=== PATIENT | male | born 1980 | race Caucasian/White ===

== ENCOUNTER → 2020-12-05 15:41 | Outpatient (BNVA) | payer BC, SELFPAY | PROVIDERS: Family Provider Family Medicine; PCP Nurse Practitioner Family; Visit Provider Urology | DX: N41.1 Chronic prostatitis (principal) | CPT/HCPCS: 81003 ==

== ENCOUNTER 2022-02-07 15:23 | Emergency (ER) | payer BC, SELFPAY ==
[2022-02-07 15:34] VITALS: BP 178/96; PULSE 62; RESP 16; TEMP 36.6; O2SAT 99; BMI 26.6
--- NOTE | 2022-02-07 15:45 | PC.NURSE ---
DR. VO REVIEWED EKG THAT WAS TAKEN IN TRIAGE AT 1540.
--- NOTE | 2022-02-07 16:17 | ECG_ITS ---
[facility] Test Date: 2022-02-07 Pat Name: Luis Baez Department: Room: Gender: Male [employer] Principal: : 1980 Requested By: Mak Day Order Number: [id number] Reading MD: Violet Goff M.D. Measurements Intervals [place] Rate: 64 P: 73 NE: 158 QRS: 74 QRSD: 92 T: 56 QT: 391 QTc: 406 Interpretive Statements SINUS RHYTHM WITH SINUS ARRHYTHMIA No previous ECG available for comparison Electronically Signed On 02-07-2022 23:28:05 CDT by Violet Goff M.D. [id number]
--- NOTE | 2022-02-07 16:17 | XRR_ITS ---
PROCEDURE INFORMATION: Exam: XR Chest Exam date and time: 02/07/2022 4:34 PM Age: 41 years old Clinical indication: Pain; Angina pectoris; Additional info: Chest pain TECHNIQUE: Imaging protocol: XR of the chest. Views: 1 view. COMPARISON: CR XR KUB [id number] 05/08/2017 10:07 PM FINDINGS: Lungs: Unremarkable. No consolidation. Pleural spaces: Unremarkable. No pleural effusion. No pneumothorax. Heart/Mediastinum: Unremarkable. No cardiomegaly. Bones/joints: Unremarkable. XR/XR chest 1V portable [id number] IMPRESSION: No acute findings.
--- NOTE | 2022-02-07 17:08 | W.ED.DIZZY ---
HPI - Dizziness General: Chief Complaint: Dizziness Stated Complaint: abnormal heart Time Seen by Provider: 02/07/22 16:56 PFSH ED PFSH: Medical History (Updated 12/05/20 @ 09:07 by Alexandro Dan MD) Chronic prostatitis Proctitis Surgical History (Updated 12/05/20 @ 09:07 by Alexandro Dan MD) H/O knee surgery H/O shoulder surgery ROTATOR CUFF AND LABRUM Hx of foot surgery POPE'S NEUROMA S/P appendectomy Family History Mother , AT AGE 56 Cancer LUNG Social History Smoking and tobacco status: never smoked Alcohol intake: never Marital status: Current occupational status: employed Course Vital Signs: Vital signs: Vital Signs Temperature 97.9 F 02/07/22 15:34 Pulse Rate 62 02/07/22 15:34 Respiratory Rate 16 02/07/22 15:34 Blood Pressure 178/96 02/07/22 15:34 Pulse Oximetry 99 02/07/22 15:34 MDM - Dizziness Lab Data Radiology Impressions Chest X-Ray 02/07/22 16:17 IMPRESSION: No acute findings. Discharge Plan Discharge Condition: Stable Prescriptions: No Action sulfamethoxazole-trimethoprim 800-160 mg tablet 1 tab PO BID Qty: 60 4RF Referrals: Rafia Jang FNP [Primary Care Provider] - Coding Level of Care Code ED Therapist'S Assistant for [facility]
--- NOTE | 2022-02-07 17:08 | W.ED.GENADLT ---
HPI - General Adult General: Chief complaint: Dizziness Stated complaint: abnormal heart Time Seen by Provider: 02/07/22 16:56 History of Present Illness: Patient is a 41-year-old male with a history of alpha gal who presents the emergency room for evaluation of right thigh pain, lightheadedness, chest pain and shortness of breath. 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 Patient felt lightheaded and a school nurse told him to come to the emergency room for evaluation. Patient said that the episode lasted briefly for few seconds and then disappeared. Shortly while patient was getting transferred to the hospital, he had another episode. Patient reports for the last 3 days, he has complained of right leg sharp pain. Patient says that he been driving to [place] to his son's graduation. She denies any pleuritic chest pain, tearing chest pain rating to his back, pressure-like chest pain. Patient has 5 first-degree family member who from heart attack in his 50s. Patient denies any smoking, drug use, alcohol use. Patient denies any pressure-like chest pain. Prior history of syncope. Patient ports that sharp leg pain has been going on for the last 3 days. Onset: earlier today Duration:multiple episodes Location:home Severity:moderate Associated symptoms: Reports chest pain, dyspnea and palpitations; Deny nausea, rash or vomiting Review of Systems Const: Reports: other (+generalized weakness); Denies: fever(s) or chills Eyes: Denies: change in vision ENMT: Denies: mouth pain Card: Reports: chest pain and palpitations Resp: Reports: dyspnea; Denies: non-productive cough GI: Denies: abdominal pain, nausea, vomiting or diarrhea : Denies: dysuria Musc: Reports: extremity pain (+R thigh pain) Skin/Breast: Denies: rash or new lesions Neuro: Denies: weakness in extremities Psych: Reports: other (Normal mood) Joce/Lymph: Denies: easy bruising PFSH ED PFSH: Medical History Chronic prostatitis Proctitis Surgical History H/O knee surgery H/O shoulder surgery ROTATOR CUFF AND LABRUM Hx of foot surgery POPE'S NEUROMA S/P appendectomy Family History Mother , AT AGE 56 Cancer LUNG Social History Smoking and tobacco status: never smoked Alcohol intake: never Marital status: Current occupational status: employed Physical Exam Const: COMMON NORMALS: alert HENMT: COMMON NORMALS: atraumatic HEAD & SCALP: atraumatic MOUTH: moist mucous membranes not abnormal Eye: COMMON NORMALS: EOMs intact bilaterally and conjunctivae normal CONJUNCTIVA: Yes conjunctivae normal Neck/C-Spine: COMMON NORMALS: full ROM and supple Resp: COMMON NORMALS: normal respiratory effort and clear to auscultation bilaterally AUSCULTATION: clear to auscultation bilaterally Cardio: COMMON NORMALS: regular rate RATE: regular rate OTHER: 2+ radial pulses b/l GI: COMMON NORMALS: Soft to palpation and non-tender PALPATION: Yes Soft to palpation Extremity: COMMON NORMALS: full ROM NARRATIVE EXTREMITY EXAM: no arnav sign Neuro: SENSORIUM/ORIENTATION: Yes alert MOTOR EXAM: No Abnormal motor strength present and Other motor observations present (no focal motor deficits) Psych: COMMON NORMALS: speech normal SPEECH: Yes normal speech MOOD & AFFECT: Yes euthymic mood Course Vital Signs: Vital signs: Vital Signs Temperature 97.9 F 02/07/22 15:34 Pulse Rate 59 L 02/07/22 17:16 Respiratory Rate 16 02/07/22 17:16 Blood Pressure 137/79 02/07/22 17:16 Pulse Oximetry 100 02/07/22 17:16 MDM - General Adult Medical Decision Making 41-year-old male with a history of gout presenting to the emergency room for evaluation of lightheadedness, palpitation, chest pain shortness of breath which occur around 2 PM today. Patient had similar episodes and less intense throughout the day. On exam, patient is hemodynamically stable, 2+ radial pulses bilaterally, no other focal findings. Given presentation, will evaluate for ACS PE and other cardiopulmonary pathologies. Will evaluate RLQ pain with US to for DVT. Troponin x 2 with Delta <5. KG is nonischemic without any acute findings. X-ray chest is clear. D-dimer within normal limit. At the present time, do not suspect lower extremity DVT as patient is completely rule out with D-dimer and ultrasound. Doubt ACS/PE or other emergent causes of chest pain. No suspicion for aortic dissection given no widened mediastinum, 2+ upper extremity pulses, or tearing pain. No suspicion for PE given no pleuritic chest pain, recent immobilization or surgery hemoptysis, or other VTE risk factors. EKG is non-ischemic. XR normal. However, given patient's family history of cardiac disease, I have offered patient close outpatient cardiac evaluation and exercise stress test. Patient agrees with both. I have given patient follow up with our case folder to be seen by our outpatient Cardiology for reevaluation and exercise stress test. Patient aware of a call from our case folder to schedule for appointment(s) and verbalizes understanding of the importance of following up. Disposition: Discharge. Patient counseled regarding diagnostic impression, treatment plan. Patient given ED strict return precautions to return for continuation, worsening, or development of new symptoms. Instructed to f/u w/ PCP and Cardiology regarding symptoms today. Patient verbalized understanding. Lab Data : 02/07/22 17:15 02/07/22 18:11 Radiology Impressions Chest X-Ray 02/07/22 16:17 IMPRESSION: No acute findings. Venous Duplex 02/07/22 17:08 IMPRESSION: No evidence of deep vein thrombosis. Laboratory Results WBC 6.5 10^3/uL (4.0-10.0) 02/07/22 17:15 RBC 4.90 10^6/uL (4.1-5.3) 02/07/22 17:15 Hgb 14.8 g/dL (11.7-16.6) 02/07/22 17:15 Hct 43.1 % (42.0-52.0) 02/07/22 17:15 MCV 88.0 fl (80-94) 02/07/22 17:15 MCH 30.2 pg (28.0-34.0) 02/07/22 17:15 MCHC 34.3 g/dL (30.0-36.0) 02/07/22 17:15 RDW 11.8 % (12.1-15.1) L 02/07/22 17:15 Plt Count 193 10^3/cmm (130-400) 02/07/22 17:15 MPV 10.8 fL (7.4-10.4) H 02/07/22 17:15 Neut % (Auto) 42.3 % 02/07/22 17:15 Lymph % (Auto) 43.7 % 02/07/22 17:15 [place] % (Auto) 12.2 % 02/07/22 17:15 Eos % (Auto) 1.2 % 02/07/22 17:15 Baso % (Auto) 0.3 % 02/07/22 17:15 Neut # (Auto) 2.74 10^3/uL (1.8-7.7) 02/07/22 17:15 Lymph # (Auto) 2.8 10^3/uL (0.8-4.8) 02/07/22 17:15 [place] # (Auto) 0.8 10^3/uL (0.2-0.9) 02/07/22 17:15 Eos # (Auto) 0.1 10^3/uL (0.0-0.8) 02/07/22 17:15 Baso # (Auto) 0.0 10^3/uL (0.0-0.1) 02/07/22 17:15 Nucleated RBC % (auto) 0 % 02/07/22 17:15 Nucleated RBCs # 0.0 /100WBC 02/07/22 17:15 D-Dimer 0.36 ug/mIFEU (0-0.59) 02/07/22 17:24 Sodium 140 mmol/L (136-145) 02/07/22 18:11 Potassium 4.2 mmol/L (3.5-5.1) 02/07/22 18:11 Chloride 103 mmol/L (98-107) 02/07/22 18:11 Carbon Dioxide 27 mmol/L (22-29) 02/07/22 18:11 Anion Gap 14.2 (5-19) 02/07/22 18:11 BUN 13 mg/dL (6-20) 02/07/22 18:11 Creatinine 1.0 mg/dL (0.7-1.2) 02/07/22 18:11 GFR Calculation 82.3 mL/min (90-130) L 02/07/22 18:11 Glucose 95 mg/dL (65-115) 02/07/22 18:11 Calculated Osmolality 290 mOsm/kg (285-295) 02/07/22 18:11 Calcium 9.0 mg/dL (8.5-10.5) 02/07/22 18:11 Troponin T Baseline 9 ng/L (0-15) 02/07/22 18:11 Troponin T 120 Minute 8.86 ng/L (0-15) 02/07/22 19:10 Delta Troponin T -0.14 ABS# (0-10) L 02/07/22 19:10 Imaging Data Other Imaging: Radiologist's impression: [employer] [address] [place] [address]. [place] [address] Ultrasound Report Signed Patient: Luis Baez Unit #: [id number] : 1980 Age/Sex: 41 / M ADM Date: 02/07/22 Loc: ER Room/Bed: Attending Dr: Ordering Provider/Ordering MD: Mak Day MD Date of Service: 02/07/22 Procedure(s): [place] [id number] Accession Number(s): [id number] Report Number: [id number] PROCEDURE INFORMATION: Exam: US Duplex Right Lower Extremity Veins, Limited Exam date and time: 02/07/2022 5:21 PM Age: 41 years old Clinical indication: Other: Numbness right thigh x 3 days; Patient HX: No HX dvt; Additional info: Eval for dvt TECHNIQUE: Imaging protocol: Real-time Duplex ultrasound of the Right Lower Extremity with 2-D sher scale, color Doppler flow and spectral waveform analysis with image documentation. Limited exam was focused on the right lower extremity veins. COMPARISON: No relevant prior studies available. FINDINGS: Right deep veins: Unremarkable. The common femoral, femoral, proximal profunda femoral and popliteal veins are patent without thrombus. Normal Doppler waveforms. Normal compressibility and/or augmentation response.? Right superficial veins: Unremarkable. Saphenofemoral junction is patent without thrombus. Soft tissues: Unremarkable. US/[place] [id number] IMPRESSION: No evidence of deep vein thrombosis. ? Dictated By: Nino Chavis DO Signed By: Nino Chavis DO Signed Date/Time: 02/07/22 1802 DD/ [address] [address] XRay Report Signed Patient: Luis Baez Unit #: [id number] : 1980 Age/Sex: 41 / M ADM Date: 02/07/22 Loc: ER Room/Bed: Attending Dr: Ordering Provider/Ordering MD: Mak Day MD Date of Service: 02/07/22 Procedure(s): XR chest 1V portable [id number] Accession Number(s): [id number] Report Number: [id number] PROCEDURE INFORMATION: Exam: XR Chest Exam date and time: 02/07/2022 4:34 PM Age: 41 years old Clinical indication: Pain; Angina pectoris; Additional info: Chest pain TECHNIQUE: Imaging protocol: XR of the chest. Views: 1 view. COMPARISON: CR XR KUB [id number] 05/08/2017 10:07 PM FINDINGS: Lungs: Unremarkable. No consolidation. Pleural spaces: Unremarkable. No pleural effusion. No pneumothorax. Heart/Mediastinum: Unremarkable. No cardiomegaly. Bones/joints: Unremarkable. XR/XR chest 1V portable [id number] IMPRESSION: No acute findings. ? Dictated By: Nino Chavis DO Signed By: Nino Chavis DO Signed Date/Time: 02/07/22 1700 DD/ 1634 Discharge Plan Discharge Patient Disposition: Home Clinical Impression: Light headedness, Chest tightness Condition: Stable Prescriptions: No Action ibuprofen 200 mg Tablet 400 mg PO Q4H PRN (Reason: Pain) 0RF Discharge Orders: Discharge ED (Routine); Ordered 02/07/22 Ordered By: Mak Day Referrals: Rafia Jang FNP [Primary Care Provider] - Discharge Diet: Advance as tolerated Discharge Activity: Increase activity as tolerated Patient Instructions: Near Syncope (ED) Activity Restrictions/Additional Instructions: Our case folder will have you follow-up with Cardiology in the next few days. You would be expected to have a phone call with our case folder who will put you on the schedule. You can expect a call from us in the next 2-3 days. If you don't hear from us, call us back in the emergency room at [phone]. Please come back to the emergency room for any more breakthrough episodes of light-headedness or passing out. Come back if any weakness in her arms, drooling, difficulty speaking, any neurological symptoms, chest pain/shortness of breath/palpitation or any new or concerning issues. Stand Alone Forms: Work/School Release Coding Level of Care Code ED Shank Faker for [facility] Exam Comprehensive
[2022-02-07 17:16] VITALS: BP 137/79; PULSE 59; RESP 16; O2SAT 100
[2022-02-07 17:29] LABS: Basophils % 0.3 %; Eosinophils # 0.1 10^3/uL (0.0-0.8); Eosinophils % 1.2 %; Hematocrit 43.1 % (42.0-52.0); Hemoglobin 14.8 g/dL (11.7-16.6); Lymphocytes # 2.8 10^3/uL (0.8-4.8); Lymphocytes % 43.7 %; Mean Corpuscular HGB Conc 34.3 g/dL (30.0-36.0); Mean Corpuscular Hemoglobin 30.2 pg (28.0-34.0); Mean Platelet Volume 10.8 fL (7.4-10.4); Monocytes # 0.8 10^3/uL (0.2-0.9); Monocytes % 12.2 %; Neutrophils # 2.74 10^3/uL (1.8-7.7); Neutrophils % 42.3 %; Nucleated Red Blood Cells % 0 %; Platelet Count 193 10^3/cmm (130-400); Red Cell Distribution Width 11.8 % (12.1-15.1); White Blood Count 6.5 10^3/uL (4.0-10.0)
[2022-02-07 17:52] LABS: D Dimer 0.36 ug/mIFEU (0-0.59)
[2022-02-07 18:40] LABS: Troponin(5th) Baseline 9 ng/L (0-15)
[2022-02-07] MEDS: sodium chloride 0.9% 1,000 ML 999 ML IV (18:42)
[2022-02-07 18:44] LABS: Anion Gap 14.2 (5-19); Blood Urea Nitrogen 13 mg/dL (6-20); Carbon Dioxide 27 mmol/L (22-29); Chloride 103 mmol/L (98-107); Glomerular Filtration Rate 82.3 mL/min (90-130); Glucose 95 mg/dL (65-115); Osmolality Calculated 290 mOsm/kg (285-295); Potassium 4.2 mmol/L (3.5-5.1); Sodium 140 mmol/L (136-145)
[2022-02-07 19:57] LABS: Troponin 5 2HR 8.86 ng/L (0-15)
[2022-02-07 20:01] LABS: Troponin 5 2HR Delta -0.14 ABS# (0-10)
[2022-02-07 20:34] VITALS: BP 122/69; PULSE 68; RESP 16; O2SAT 100
--- NOTE | 2022-02-09 12:47 | DCPLANNER ---
Addendum entered by Sammi Menendez 07/13/22 09:24: Patient had a stress test scheduled - patient did attend stress test. Addendum entered by Sammi Menendez 02/28/22 20:20: Patient had a follow up appointment scheduled with [facility] - patient did attend appointment. Addendum entered by Sammi Menendez 02/16/22 08:29: Patient has a follow up appointment scheduled for Monday, February 21, 2022 at 2:[address] Goff at [facility]. customer pricing manager called patient and gave him the appointment information. Addendum entered by Sammi Menendez 02/14/22 13:53: customer pricing manager had message to schedule an outpatient stress test for patient. customer pricing manager called patient to confirm that patient wants the stress test ordered and he stated that he did. Patient also stated that he sees Rafia Jang at [facility] for his primary care physician. customer pricing manager faxed signed order to centralized scheduling, who will call patient with appointment information. Original Note: customer pricing manager had message to schedule a follow up appointment for patient with [facility]. customer pricing manager sent patients information to the front staff at [facility] for review. Patients information will be printed and reviewed. Clinic will notify patient case coordinator with appointment information. customer pricing manager will call patient with appointment information.
== END 2022-02-07 20:37 | disposition home or self-care (01) ==
PROVIDERS: Emergency Provider Emergency Medicine; PCP Nurse Practitioner Family
DX: R42 Dizziness and giddiness (principal); R07.89 Other chest pain; Z82.49 Family history of ischemic heart disease and other diseases of the circulatory system
CPT/HCPCS: 71045; 80048; 84484; 85025; 85378; 93005; 93971; 96360; 99284; J7030

== ENCOUNTER 2022-03-05 07:25 | Outpatient (CLI) | payer BC, SELFPAY ==
[2022-03-05 08:07] LABS: Chol HDL Ratio 7.85 mg/dL (1.0-5.00); Cholesterol 259 mg/dL (0-200); HDL Cholesterol 33 mg/dL (60-100); LDL Cholesterol Calculated 169 mg/dL (50-129); LDL HDL Ratio 5.12 RATIO (0.00-3.22); Triglycerides 286 mg/dL (0-150)
== END 2022-03-05 07:26 | disposition home or self-care (01) ==
PROVIDERS: PCP Nurse Practitioner Family; Visit Provider Internal Medicine Cardiovascular Disease
DX: Z13.220 Encounter for screening for lipoid disorders (principal); Z83.438 Family history of other disorder of lipoprotein metabolism and other lipidemia
CPT/HCPCS: 80061

== ENCOUNTER 2022-05-21 10:50 | Outpatient (CLI) | payer BC, SELFPAY ==
[2022-05-21 11:23] VITALS: BMI 26.6
--- NOTE | 2022-05-21 11:23 | ECG_ITS ---
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 Interpretive Statements NAME OF STUDY: TREADMILL STRESS ECHOCARDIOGRAM INDICATION: Chest Pain, PROCEDURE: The baseline electrocardiogram showed normal sinus rhythm with normal ST-Ts. At the baseline, the patient's blood pressure was 117/79 mm Hg with a heart rate of 83. The patient exercised for 10 minutes and 59 seconds on a 1 7 on a standard Manuel protocol. Patient attained a maximum heart rate of 172 beats per minute(96% of the maximum predicted heart rate) with a blood pressure at the peak exercise of 142/59 mm Hg. The EKG at the peak exercise revealed no significant changes. Patient did not have any chest pain or any significant arrhythmis with the exercise The echocardiographic pictures were taken at the baseline, immediate post exercise and during the recovery phase, at the standard views. During the recovery phase, there were no new changes. Blood pressure at the end of the recovery phase was 128/68 mm Hg with a heart rate of 97 per minute. CONCLUSION: 1. No significant EKG changes with the [treadmill exercise 2. No exercise-induced chest pain or cardiac arrhythmia 3. Good exercise tolerance, attained a maximum of 13.5 METs 4. Echocardiographic pictures were taken at the standard views; see separate report. Electronically Signed On 05-25-2022 17:31:48 CDT by Violet Goff M.D. [email or web address]
[2022-05-21 12:08] VITALS: BP 127/68; PULSE 95
--- NOTE | 2022-05-21 12:15 | USCV_ITS ---
Stress Echo Luis Baez Age: 42 Gender: M : 1980 Exam Date: 05/21/2022 11:42 Ordering Phys: Violet Goff MD ([email or web address]) Technologist: Emeka Orellana [place]am [place] [facility] [place] Indication: cp Rhythm: Sinus Patient History: cp Cardiac Medications: Statin Medications in past 24 hours: NONE Contrast: Stress Results Protocol: Manuel Total dose(mL): Exercise Duration (min:sec): 10:59 METS: 13.5 Resting HR: 83 Resting BP: 117 / 79 Peak HR: 172 Peak BP: 197 / 68 Max Predicted HR: 178 97 % Max Predicted HR Target HR: 151 Double Product: 53943 Stress Summary: The patient's target heart rate was achieved BP Response: Normal Reason for Termination: Reached target heart rate or work-load Cardiac Symptoms: None ECG Analysis Resting ECG: Please see separate report Stress ECG: Please see separate report Arrhythmia: Please see separate report MEASUREMENTS (Male/Female) Normal Values FINDINGS The baseline echocardiogram revealed normal LV size with an ejection fraction of 50 to 55%. The basal septum was found to be hypokinetic. With the peak exercise, there was good augmentation of all the segments with no exercise-induced wall motion abnormalities. During the recovery phase, the segmental wall motion returned to the baseline. CONCLUSIONS Normal echocardiographic response to treadmill exercise No significant coronary ischemia, based on the above findings. For the EKG response to exercise, please refer to separate report Dr Violet Goff MD FAC (Electronically Signed) Final Date: 22 May 2022 08:59 S
== END 2022-05-21 10:51 | disposition home or self-care (01) ==
PROVIDERS: PCP Nurse Practitioner Family; Visit Provider Internal Medicine Cardiovascular Disease
DX: R07.9 Chest pain, unspecified (principal); R06.02 Shortness of breath
CPT/HCPCS: 93017; 93350

== ENCOUNTER 2022-08-19 13:32 | Emergency (ER) | payer BC, SELFPAY ==
[2022-08-19 14:25] VITALS: BMI 26.6
[2022-08-19 14:28] VITALS: BP 136/78; PULSE 70; RESP 18; TEMP 36.7; O2SAT 100
--- NOTE | 2022-08-19 14:39 | CTR_ITS ---
PROCEDURE INFORMATION: Exam: CT Abdomen And Pelvis With Contrast Exam date and time: 08/19/2022 3:04 PM Age: 42 years old Clinical indication: Abdominal pain; Generalized; Prior surgery; Surgery type: Appy; Additional info: Generalized severe abdominal pain TECHNIQUE: Imaging protocol: Computed tomography of the abdomen and pelvis with contrast. Radiation optimization: All CT scans at this facility use at least one of these dose optimization techniques: automated exposure control; mA and/or kV adjustment per patient size (includes targeted exams where dose is matched to clinical indication); or iterative reconstruction. Contrast material: OMNI 350; Contrast volume: 100 ml; Contrast route: INTRAVENOUS (IV); COMPARISON: CR XR abdomen min 2V [id number] 07/17/2022 3:08 PM RADIATION DOSE METRICS: Total DLP (mGy-cm): 517.53 FINDINGS: Lungs: No acute findings within the included lung bases. Liver: Normal. No mass. Gallbladder and bile ducts: Normal. No calcified stones. No ductal dilation. Pancreas: Normal. No ductal dilation. Spleen: Normal. No splenomegaly. Adrenal glands: Normal. No mass. Kidneys and ureters: No hydronephrosis. No mass. Stomach and bowel: Evaluation of the GI tract somewhat limited without the administration of enteric contrast. No obstruction. No focal inflammatory changes are appreciated. Appendix: Appendectomy per history. Intraperitoneal space: No free air. No significant fluid collection. Vasculature: Unremarkable. No abdominal aortic aneurysm. Lymph nodes: Unremarkable. No enlarged lymph nodes. Urinary bladder: Unremarkable as visualized. Reproductive: Unremarkable as visualized. Bones/joints: No acute or aggressive osseous lesion. Soft tissues: Unremarkable. CT/CT abdomen pelvis w con* [id number] IMPRESSION: No acute findings.
--- NOTE | 2022-08-19 14:50 | ED_ITS ---
HPI - General Adult General: Chief complaint: Abdominal Pain Stated complaint: Abd pains Time Seen by Provider: 08/19/22 14:39 History of Present Illness: 42-year-old male presenting today with abdominal pain. Patient notes suprapubic and right quadrant abdominal pain. Pain has been present for several weeks. Has not been improving. KUB was without any significant abnormality. Was sent to the ED by primary care to obtain a CT abdomen pelvis. He denies nausea or vomiting. He denies diarrhea. Tried laxatives without improvement of his symptoms. He denies testicle pain. Does have a history of alpha gal. But is cut out all meat from his diet. He denies fevers or chills Review of Systems General: Reports: 10 or more systems reviewed and unremarkable except in HPI and below PFSH ED PFSH: Medical History Chronic prostatitis Proctitis Surgical History H/O knee surgery H/O shoulder surgery ROTATOR CUFF AND LABRUM Hx of foot surgery POPE'S NEUROMA S/P appendectomy Family History Mother , AT AGE 56 Cancer LUNG Brother CAD (coronary artery disease), Onset Age: 50 Brother CAD (coronary artery disease) pacemaker Denies family history of Diabetes Clotting disorder Dementia Chronic kidney disease (CKD) Suicide Anesthesia complication Bleeding disorder Lung disease Stroke Social History Smoking and tobacco status: never smoked Alcohol intake: current Alcohol intake frequency: holidays/special occasions only Marital status: Current occupational status: employed Physical Exam Const: COMMON NORMALS: no acute distress, patient oriented x3 and alert GENERAL APPEARANCE: cooperative ORIENTATION/CONSCIOUSNESS: Yes awake, Yes oriented to person, Yes oriented to place and Yes oriented to time HENMT: COMMON NORMALS: normocephalic, atraumatic, external ears normal, Normal external nose present and moist oral mucous membranes HEAD & SCALP: normal to inspection, normocephalic and atraumatic NOSE: Normal external nose present GENERAL EAR: hearing grossly impaired EXTERNAL EAR: Yes external ears normal Eye: COMMON NORMALS: Equal, round and reactive pupils present, EOMs intact bilaterally, conjunctivae normal and no scleral icterus GENERAL EYE: appearance normal, both eyes and all related structures EYELID: eyelids normal CONJUNCTIVA: Yes conjunctivae normal SCLERA: sclerae normal PUPIL: Yes Equal, round and reactive pupils present Neck/C-Spine: COMMON NORMALS: full ROM, supple and no JVD GENERAL: Yes normal visual inspection Lymph: LYMPHATIC: no lymphadenopathy noted and no lymphedema noted Chest: COMMONS NORMALS: normal inspection of the chest Resp: COMMON NORMALS: normal respiratory effort, No retractions and No use of accessory muscles Cardio: COMMON NORMALS: no JVD, regular rate and regular rhythm RATE: regular rate RHYTHM: regular rhythm GI: COMMON NORMALS: Normal to inspection, nondistended, normoactive bowel sounds present : COMMON NORMALS: Yes no CVA tenderness BLADDER/KIDNEY EXAM: Yes no CVA tenderness Back/Pelvis: COMMON NORMALS: no CVA tenderness and thoracic and lumbar spine normal to inspection Extremity: COMMON NORMALS: normal to inspection, full ROM and capillary refill normal GENERAL: Yes normal exam except as noted Neuro: COMMON NORMALS: patient oriented x3, CN's II-XII intact bilaterally, moves all extremities, no focal motor deficits, no sensory deficits noted and gait normal SENSORIUM/ORIENTATION: Yes alert, Yes oriented to person, Yes oriented to place and Yes oriented to time Psych: COMMON NORMALS: mental status grossly normal, Normal thought process present, cooperative and normal affect THOUGHT PROCESS: Normal thought process present Skin: COMMON NORMALS: no rashes or lesions noted and no wounds GENERAL SKIN EXAM: no rashes or lesions noted Course Vital Signs: Vital signs: Vital Signs Temperature 98.0 F 08/19/22 14:28 Pulse Rate 70 08/19/22 14:28 Respiratory Rate 18 08/19/22 14:28 Blood Pressure 136/78 08/19/22 14:28 Pulse Oximetry 100 08/19/22 14:28 Oxygen Delivery Me thod 08/19/22 14:28 [facility] - General Adult Medical Decision Making 42-year-old male presenting today with longstanding abdominal pain. CBC is unremarkable. CMP is unremarkable. Urinalysis is unremarkable. CT abdomen pelvis is unremarkable. Patient referred back to his primary care doctor for further evaluation. Patient was given strict return precautions and recommended routine outpatient follow-up. Lab Data : 08/19/22 15:00 08/19/22 15:00 Radiology Impressions Abdomen/Pelvis CT 08/19/22 14:39 IMPRESSION: No acute findings. Laboratory Results WBC 5.1 10^3/uL (4.0-10.0) 08/19/22 15:00 RBC 4.80 10^6/uL (4.1-5.3) 08/19/22 15:00 Hgb 14.8 g/dL (11.7-16.6) 08/19/22 15:00 Hct 42.7 % (42.0-52.0) 08/19/22 15:00 MCV 89.0 fl (80-94) 08/19/22 15:00 MCH 30.8 pg (28.0-34.0) 08/19/22 15:00 MCHC 34.7 g/dL (30.0-36.0) 08/19/22 15:00 RDW 11.3 % (12.1-15.1) L 08/19/22 15:00 Plt Count 197 10^3/cmm (130-400) 08/19/22 15:00 MPV 10.7 fL (7.4-10.4) H 08/19/22 15:00 Neut % (Auto) 44.4 % 08/19/22 15:00 Lymph % (Auto) 41.0 % 08/19/22 15:00 Blair % (Auto) 12.0 % 08/19/22 15:00 Eos % (Auto) 2.0 % 08/19/22 15:00 Baso % (Auto) 0.4 % 08/19/22 15:00 Neut # (Auto) 2.25 10^3/uL (1.8-7.7) 08/19/22 15:00 Lymph # (Auto) 2.1 10^3/uL (0.8-4.8) 08/19/22 15:00 Blair # (Auto) 0.6 10^3/uL (0.2-0.9) 08/19/22 15:00 Eos # (Auto) 0.1 10^3/uL (0.0-0.8) 08/19/22 15:00 Baso # (Auto) 0.0 10^3/uL (0.0-0.1) 08/19/22 15:00 Nucleated RBC % (auto) 0 % 08/19/22 15:00 Nucleated RBCs # 0.0 /100WBC 08/19/22 15:00 Sodium 139 mmol/L (136-145) 08/19/22 15:00 Potassium 4.0 mmol/L (3.5-5.1) 08/19/22 15:00 Chloride 102 mmol/L (98-107) 08/19/22 15:00 Carbon Dioxide 28 mmol/L (22-29) 08/19/22 15:00 Anion Gap 13.0 (5-19) 08/19/22 15:00 BUN 14 mg/dL (6-20) 08/19/22 15:00 Creatinine 1.0 mg/dL (0.7-1.2) 08/19/22 15:00 GFR Calculation 81.9 mL/min (90-130) L 08/19/22 15:00 Glucose 88 mg/dL (65-115) 08/19/22 15:00 Calculated Osmolality 288 mOsm/kg (285-295) 08/19/22 15:00 Calcium 9.5 mg/dL (8.5-10.5) 08/19/22 15:00 Total Bilirubin 1.1 mg/dL (0.15-1.2) 08/19/22 15:00 AST 15 U/L (0-40) 08/19/22 15:00 ALT 14 U/L (0-41) 08/19/22 15:00 Alkaline Phosphatase 102 U/L (40-130) 08/19/22 15:00 Total Protein 7.5 g/dL (6.6-8.7) 08/19/22 15:00 Albumin 4.6 g/dL (3.5-5.2) 08/19/22 15:00 Globulin 2.9 g/dL (1.3-4.6) 08/19/22 15:00 Lipase 73 U/L (13-60) H 08/19/22 15:00 Urine Color Colorless (Yellow) 08/19/22 14:55 Urine Appearance Clear (CLEAR) 08/19/22 14:55 Urine pH 6.5 (5-7) 08/19/22 14:55 Ur Specific [place] 1.000 (1.005-1.030) L 08/19/22 14:55 Urine Protein Neg (Negative) 08/19/22 14:55 Urine Glucose (UA) Norm (Normal) 08/19/22 14:55 Urine Ketones Negative (Negative) 08/19/22 14:55 Urine Blood Neg (Negative) 08/19/22 14:55 Urine Nitrate Negative (Negative) 08/19/22 14:55 Urine Bilirubin Neg (Negative) 08/19/22 14:55 Urine Urobilinogen Norm mg/dL (Negative) 08/19/22 14:55 Ur Leukocyte Esterase Negative (Negative) 08/19/22 14:55 Discharge Plan Discharge Patient Disposition: Home Clinical Impression: Abdominal pain Condition: Stable Prescriptions: No Action rosuvastatin [Crestor] 10 mg tablet 10 mg PO DAILY Qty: 90 3RF ibuprofen 200 mg Tablet 400 mg PO Q4H PRN (Reason: Pain) Discharge Orders: Discharge ED (Routine); Ordered 08/19/22 Ordered By: Gumaro Garber Referrals: Rafia Jang FNP [Primary Care Provider] - Patient Instructions: Abdominal Pain (ED) Coding Level of Care Code ED Collections Professional for Chg Fwd Exam Comprehensive
[2022-08-19] MEDS: iohexol 350 mg/mL 100 mL Btl IV (15:09)
[2022-08-19 15:11] LABS: Add Urine Microscopic? NO; Charge for UA Resulting for Rev
[2022-08-19 15:24] LABS: Basophils % 0.4 %; Eosinophils # 0.1 10^3/uL (0.0-0.8); Hematocrit 42.7 % (42.0-52.0); Hemoglobin 14.8 g/dL (11.7-16.6); Lymphocytes # 2.1 10^3/uL (0.8-4.8); Mean Corpuscular HGB Conc 34.7 g/dL (30.0-36.0); Mean Corpuscular Hemoglobin 30.8 pg (28.0-34.0); Mean Platelet Volume 10.7 fL (7.4-10.4); Monocytes # 0.6 10^3/uL (0.2-0.9); Neutrophils # 2.25 10^3/uL (1.8-7.7); Neutrophils % 44.4 %; Nucleated Red Blood Cells % 0 %; Platelet Count 197 10^3/cmm (130-400); Red Cell Distribution Width 11.3 % (12.1-15.1); White Blood Count 5.1 10^3/uL (4.0-10.0)
[2022-08-19 15:24] LABS: Bilirubin Urine Neg (Negative); Blood Urine Neg (Negative); Glucose Urine UA Norm (Normal); Ketones Urine Negative (Negative); Leukocyte Esterase Urine Negative (Negative); Nitrate Urine Negative (Negative); Protein Urine Neg (Negative); Urine Appearance Clear (CLEAR); Urine Color Colorless (Yellow); Urobilinogen Urine Norm (Negative); pH Urine 6.5 (5-7)
[2022-08-19 15:35] LABS: Alanine Aminotransferase 14 U/L (0-41); Albumin Level 4.6 g/dL (3.5-5.2); Alkaline Phosphatase 102 U/L (40-130); Aspartate Amino Transferase 15 U/L (0-40); Blood Urea Nitrogen 14 mg/dL (6-20); Calcium 9.5 mg/dL (8.5-10.5); Carbon Dioxide 28 mmol/L (22-29); Chloride 102 mmol/L (98-107); Globulin 2.9 g/dL (1.3-4.6); Glomerular Filtration Rate 81.9 mL/min (90-130); Glucose 88 mg/dL (65-115); Lipase 73 U/L (13-60); Osmolality Calculated 288 mOsm/kg (285-295); Sodium 139 mmol/L (136-145); Total Bilirubin 1.1 mg/dL (0.15-1.2); Total Protein 7.5 g/dL (6.6-8.7)
[2022-08-19 16:41] VITALS: PULSE 57; RESP 16; O2SAT 98
== END 2022-08-19 16:35 | disposition home or self-care (01) ==
PROVIDERS: Emergency Provider Emergency Medicine; PCP Nurse Practitioner Family
DX: R10.11 Right upper quadrant pain (principal)
CPT/HCPCS: 74177; 80053; 81003; 83690; 85025; 99285; Q9967

== ENCOUNTER 2023-03-28 11:11 | Outpatient (CLI) | payer BC, SELFPAY ==
--- NOTE | 2023-03-28 11:21 | MR_ITS ---
WS: [id number] EXAMINATION: MR hip RT wo con* [id number] ORDER DATE: 03/28/2023 11:22 AM COMPARISON: None. HISTORY: STRAIN OF FELXOR MUSCLE OF RIGHT HIP CONTRAST: None. TECHNIQUE: Coronal STIR of the Pelvis. Coronal proton density, coronal T1, axial T2 fat sat, axial T1 , sagittal T2 fat sat, and sagittal T1 performed of the hip. FINDINGS: Normal bone marrow signal in both hips. Normal femoral heads. No evidence of acute fracture or avascu lar necrosis. Mild degenerative narrowing RIGHT greater than LEFT hips with mild acetabular sclerosis with slight hypertrophic spurring about the superolateral acetabulum. No significant joint effusion. Normal bone marrow signal in the bony pelvis and sacrum. No sacral insufficiency fractures. Normal visualized soft tissues. No inguinal lymphadenopathy. Small central disc protrusion at L4-L5 on the prior CT abdomen pelvis August 19, 2022. This results in narrowing of the subarticular recess and impingement traversing RIGHT greater than LEFT L5 nerve r oots with mild to moderate central canal stenosis. Mild bilateral foraminal narrowing. Consider MRI for further evaluation of the lumbar spine. S1 appears partially lumbarized. Mild centra l canal stenosis L3-L4 with mild annular bulging. Moderate facet arthropathy L3-L4. MR/MR hip RT wo con* [id number] IMPRESSION: 1. Mild degenerative narrowing bilateral hips RIGHT greater than LEFT. No femo ral head edema or AVN. 2. Joint space narrowing RIGHT hip with acetabular sclerosis. Hypertrophic heather nges about the RIGHT greater than LEFT acetabulum. 3. Disc bulging L3-L4 and L4-L5 visualized on prior CT abdomen pelvis August 19, 2022 described above. Recommend MRI lumbar spine in further evaluation.
== END 2023-03-28 11:12 | disposition home or self-care (01) ==
PROVIDERS: PCP Nurse Practitioner Family; Visit Provider Family Medicine
DX: S76.011A Strain of muscle, fascia and tendon of right hip, initial encounter (principal); X58.XXXA Exposure to other specified factors, initial encounter; R93.7 Abnormal findings on diagnostic imaging of other parts of musculoskeletal system; M51.36 Other intervertebral disc degeneration, lumbar region
CPT/HCPCS: 73721

== ENCOUNTER 2023-04-17 11:12 | Outpatient (CLI) | payer BC, SELFPAY ==
--- NOTE | 2023-04-17 11:32 | MR_ITS ---
WS: [id number] MRI LUMBAR SPINE WITH AND WITHOUT CONTRAST. HISTORY: LOW BACK PAIN COMPARISON: No similar studies. TECHNIQUE: Sagittal and axial multisequence imaging is submitted. Schmorl's nodes involving the endplates of T11 and T12. Normal lumbar alignment with no compression fractures or marrow edema. Disc spaces and vertebral body heights are well-preserved. Conus terminates normally at L1. L1-L2: No significant stenosis. Mild bilateral foraminal narrowing. L2-L3: Central canal is small caliber. There is mild effacement of ventral CSF. Moderate ligamentum f lavum and facet arthritis. Mild central, bilateral subarticular recess and foraminal stenosis. There is mild disc contact upon the traversing L3 nerve roots. L3-L4: Diffuse annular disc bulging encroaching upon the ventral thecal sac and contacting the clark sing L4 nerve roots. Marked ligamentum flavum and facet arthritis. Mild bilateral foraminal stenosis. L4-L5: Mild annular disc bulging with a central and RIGHT subarticular disc protrusion. There is sign ificant disc contacting the traversing L5 nerve roots in the subarticular recess. Marked ligamentum f lavum hypertrophy, LEFT greater than RIGHT. Severe facet arthritis. Mild bilateral foraminal stenosis , RIGHT greater than LEFT. Moderate to severe central and subarticular recess stenosis. L5-S1: Facet joint arthritis bilaterally, LEFT greater than RIGHT. Moderate LEFT and mild RIGHT yenifer inal stenosis. Postcontrast imaging negative. Partial L5 sacralization. MR/MR lumbar spine wo/w con [id number] IMPRESSION: 1. Lumbar central canal is diffusely narrowed from L2-3 through L4-5. Probably due to combination of short pedicles, disc and marked facet joint arthritis. 2. L2-3: Mild central, bilateral subarticular recess and foraminal stenosis. M ild disc contact on the traversing L3 nerve roots. 3. L4-5: Central and RIGHT subarticular recess disc protrusion at L4-5. Signif icant disc contact on the traversing L5 nerve roots in the subarticular recesse s. Greater contact on the RIGHT L5 traversing nerve root due to disc protrusion . Moderate to severe central with subarticular recess stenosis and mild foramin al stenosis at L4-5. 4. Moderate LEFT and mild RIGHT foraminal stenosis at L5-S1. 5. No discitis or osteomyelitis.
== END 2023-04-17 11:13 | disposition home or self-care (01) ==
PROVIDERS: PCP Nurse Practitioner Family; Visit Provider Family Medicine
DX: M48.07 Spinal stenosis, lumbosacral region (principal); M47.817 Spondylosis without myelopathy or radiculopathy, lumbosacral region; M54.50 Low back pain, unspecified
CPT/HCPCS: 72158; A9577

== ENCOUNTER 2023-10-02 19:17 | Emergency (ER) | payer OTHER, SELFPAY ==
[2023-10-02 19:37] VITALS: BP 152/93; PULSE 77; RESP 18; TEMP 36.7; O2SAT 100; BMI 26.6
--- NOTE | 2023-10-02 20:03 | W.ED.ANXIETY ---
HPI - Anxiety General: Chief Complaint: Anxiety Stated Complaint: major anxiety fear, cant function Time Seen by Provider: 10/02/23 19:50 History of Present Illness: Patient presents to the ER complaining of anxiety and panic attacks. Patient states it is worse at night especially before he goes to bed. Patient's been having these for about 7 months but they have been getting more common in frequency and more severe in nature. Patient is never had a diagnosis of anxiety nor does he take anything psychiatrically. 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 Patient does state he had a rough childhood growing up and his mother was bipolar and is never got any counseling or therapy for what he had to go through growing up Review of Systems General: Reports: 10 or more systems reviewed and unremarkable except in HPI and below PFSH ED PFSH: Medical History Chronic prostatitis Proctitis Surgical History H/O knee surgery H/O shoulder surgery ROTATOR CUFF AND LABRUM S/P appendectomy Hx of foot surgery POPE'S NEUROMA Family History Mother , AT AGE 56 Cancer LUNG Brother CAD (coronary artery disease), Onset Age: 50 Brother CAD (coronary artery disease) pacemaker Denies family history of Diabetes Clotting disorder Dementia Chronic kidney disease (CKD) Suicide Anesthesia complication Bleeding disorder Lung disease Stroke Social History Smoking and tobacco/nicotine status: never used tobacco/nicotine Alcohol intake: current Alcohol intake frequency: holidays/special occasions only Substance/Drug Use: never Marital status: Current occupational status: employed Physical Exam Const: COMMON NORMALS: no acute distress, average body habitus, patient oriented x3, no limitations, healthy appearing, alert and well nourished HENMT: COMMON NORMALS: normocephalic, atraumatic, hearing grossly normal bilaterally, external ears normal, Normal external nose present, moist oral mucous membranes and oropharynx normal HEAD & SCALP: normocephalic and atraumatic NOSE: Normal external nose present EXTERNAL EAR: Yes external ears normal Neck/C-Spine: COMMON NORMALS: no JVD Chest: COMMONS NORMALS: normal inspection of the chest and normal palpation of entire chest wall Resp: COMMON NORMALS: normal respiratory effort, No retractions, No use of accessory muscles and clear to auscultation bilaterally AUSCULTATION: clear to auscultation bilaterally Cardio: COMMON NORMALS: no JVD, regular rate, regular rhythm, S1 normal heart sound present, S2 normal heart sound present, No gallops present (Cardio), No clicks present (Cardio), No murmurs present (Cardio) and No rub (Cardio) RATE: regular rate RHYTHM: regular rhythm HEART SOUNDS: S1 normal heart sound present and S2 normal heart sound present GI: COMMON NORMALS: Normal to inspection, nondistended, normoactive bowel sounds present, Soft to palpation, non-tender, No hepatosplenomegaly present and no masses PALPATION: Yes Soft to palpation and Yes No hepatosplenomegaly present Neuro: COMMON NORMALS: patient oriented x3 SENSORIUM/ORIENTATION: Yes alert Course Vital Signs: Vital signs: Vital Signs Temperature 98.1 F 10/02/23 19:37 Pulse Rate 77 10/02/23 19:37 Respiratory Rate 18 10/02/23 19:37 Blood Pressure 152/93 10/02/23 19:37 Pulse Oximetry 100 10/02/23 19:37 MDM - Anxiety Medical Decision Making Presents today ER with anxiety and panic attacks. She has a highly stressful job. Patient went through trauma growing up that may be unresolved. Patient has never been diagnosed with anxiety nor panic attacks nor been put any medicine for them. We will try a low-dose of buspirone to see if this helps while he can follow-up with his family practice physician for further evaluation and treatment and probable referral to counseling. Differential Diagnosis Likely acute anxiety; Unlikely hyperventilation or panic disorder Medical Records I reviewed the patient's medical records. Lab Data I reviewed the patient's lab results. No radiology studies performed this visit Discharge Plan Discharge Patient Disposition: Home Clinical Impression: Acute anxiety Condition: Stable Prescriptions: New buspirone 5 mg tablet 5 mg PO TID PRN (Reason: anxiety) Qty: 30 0RF No Action ibuprofen 200 mg Tablet 400 mg PO Q4H PRN (Reason: Pain) Discharge Orders: Discharge ED (Routine); Ordered 10/02/23 Ordered By: Oren Cavanaugh Referrals: Buddy Vela MD [Primary Care Provider] - 1 week Patient Instructions: Anxiety (ED) Activity Restrictions/Additional Instructions: Please take all your medicine as directed. Please follow-up with your family practice physician within the next 7 days for further evaluation and treatment. Please consider outpatient counseling and therapy. Coding Level of Care Code ED Fine [employer] P[employer] for [facility] [place]
[2023-10-02] MEDS: BuSPIRONE 10 mg Tablet PO (20:20)
== END 2023-10-02 20:31 | disposition home or self-care (01) ==
PROVIDERS: Emergency Provider Emergency Medicine; PCP Family Medicine
DX: F41.9 Anxiety disorder, unspecified (principal)
CPT/HCPCS: 99283

== ENCOUNTER → 2024-11-12 08:40 | Outpatient (BNVA) | payer OTHER, SELFPAY | PROVIDERS: PCP Family Medicine; Visit Provider Nurse Practitioner Family | DX: R50.9 Fever, unspecified (principal) | CPT/HCPCS: 87804 ==